=== PATIENT | female | born 1970 | race Caucasian/White ===

== ENCOUNTER 2020-08-27 15:49 | Observation (INO) ==
[2020-08-27 17:04] LABS: Basophils # 0.1 10*3/uL (0.0-0.2); Basophils % 0.8 % (0.0-0.8); Eosinophils # 1.3 10*3/uL (0.0-0.87); Eosinophils % 9.3 % (0.00-10.9); Hematocrit 44.3 VOL% (35.7-47.0); Immature Granulocytes % 0.4 %; Immature Granulocytes Absolute 0.06 #; Lymphocytes # 2.7 10*3/uL (1.4-4.0); Lymphocytes % 18.6 % (21.3-54.2); Mean Corpuscular HGB Conc 33.9 GM/DL (32-36); Mean Corpuscular Volume 101.4 FL (87-102); Mean Platelet Volume 9.3 FL (9.6-12.0); Monocytes % 7.4 % (1.7-12.7); Neutrophils % 63.5 % (38.7-73.9); Platelet Count 368 T/CUMM (130-400); Red Blood Count 4.37 MC/CUMM (3.8-5.5); Red Cell Distribution Width 13.2 % (9.3-17.3); White Blood Count 14.3 T/CUMM (4-12)
[2020-08-27 17:19] LABS: Albumin 3.5 G/DL (3.4-5.0); Bilirubin,Total 1.2 MG/DL (0.2-1.0); Calcium 9.5 MG/DL (8.5-10.1); Potassium 3.4 MMOL/L (3.5-5.1); Total Protein 7.7 G/DL (6.4-8.2)
[2020-08-27] MEDS ORDERED: ONDANSETRON 4 MG/2 ML VIAL IV PRN (18:52)
[2020-08-27] MEDS ORDERED: HYDROmorphone 2 MG/1 ML VIAL IV PRN (18:52)
[2020-08-27] MEDS ORDERED: ACETAMINOPHEN 325 MG TABLET PO PRN (18:52)
[2020-08-27] MEDS: SODIUM CHLORIDE 0.9% 1,000 ML IV SCH ×2 (19:32→22:20)
[2020-08-28] MEDS: SODIUM CHLORIDE 0.9% 1,000 ML IV SCH ×2 (03:09→06:18)
[2020-08-28] MEDS ORDERED: cefOXitin 2,000 MG in SYRINGE 1 EACH IV ONE (06:33)
[2020-08-28] MEDS ORDERED: INDOCYANINE GREEN 25 MG VIAL IV ONE (06:33)
[2020-08-28 08:04] LABS: Bacteria,Urine Occasional /HPF (Few); Bilirubin,Urine Negative (Negative); Blood, Urine Small mg/dL (Negative); Glucose,Urine (UA) Negative (Negative); Ketones,Urine Negative (Negative); Mucus,Urine Moderate /LPF (Occasional); Nitrite,Urine Negative (Negative); Protein,Urine Negative; RBC,Urine 1 /HPF (0-4); Squamous Epithelial Cell,Urine Few /HPF (0-10); Urine Appearance Slightly Hazy (Clear); Urine Color Yellow (Yellow); Urine Specific Gravity 1.016 (1.001-1.035); Urine Urobilinogen < 2.0 EU/DL (0.2-1.0); WBC,Urine <1 /HPF (0-6)
[2020-08-28] MEDS ORDERED: LIDOCAINE 1%/EPI INJ 20 ML VIAL ONE (09:12)
[2020-08-28] MEDS ORDERED: BUPIVACAINE MPF 0.25% 30 ML VIAL ONE (09:12)
[2020-08-28] MEDS ORDERED: LIDOCAINE 2% 5 ML VIAL ONE (09:48)
[2020-08-28] MEDS ORDERED: propofoL 200 MG/20 ML VIAL IV ONE (09:48)
[2020-08-28] MEDS ORDERED: SEVOFLURANE 1 UNIT/15 MINUTE INH ONE ×2 (09:48→11:29)
[2020-08-28] MEDS ORDERED: fentaNYL 100 MCG/2 ML VIAL ONE (09:48)
[2020-08-28] MEDS ORDERED: MIDAZOLAM 2 MG/2 ML VIAL ONE (09:48)
[2020-08-28] MEDS ORDERED: ROCURONIUM 50 MG/5 ML VIAL IV ONE ×2 (09:48→10:40)
[2020-08-28] MEDS ORDERED: LACTATED RINGERS 1,000 ML IV SCH (10:00)
[2020-08-28] MEDS ORDERED: ePHEDrine 50 MG/ML VIAL ONE (10:21)
[2020-08-28] MEDS ORDERED: ONDANSETRON 4 MG/2 ML VIAL ONE (10:33)
[2020-08-28] MEDS ORDERED: SUGAMMADEX 200 MG/2 ML VIAL IV ONE (10:56)
[2020-08-28] MEDS ORDERED: TISSUE ADHESIVE 1 EACH APPLICATOR TOP ONE (11:02)
[2020-08-28] MEDS ORDERED: HYDROmorphone 2 MG/1 ML VIAL IV PRN (11:26)
[2020-08-28] MEDS ORDERED: MEPERIDINE 25 MG/1 ML VIAL IV PRN (11:26)
[2020-08-28] MEDS ORDERED: diphenhydrAMINE 50 MG/1 ML VIAL IV PRN (11:26)
[2020-08-28] MEDS ORDERED: PROMETHAZINE INJ 25 MG in SODIUM CHLORIDE 0.9% 50 ML IV PRN (11:26)
[2020-08-28] MEDS ORDERED: ONDANSETRON 4 MG/2 ML VIAL IV PRN (11:26)
[2020-08-28] MEDS ORDERED: ALBUTEROL/IPRATROPIUM 3 ML NEB RESP TX ONE ×2 (11:27→11:30)
[2020-08-28 17:30] VITALS: BP 123/75
[2020-08-28] MEDS ORDERED: BUDESONIDE/FORMOTEROL 160-4.5 INHALER 6 GM INH SCH (21:00)
[2020-08-28] MEDS ORDERED: ESCITALOPRAM 10 MG TABLET PO SCH (21:00)
[2020-08-29] MEDS ORDERED: LEVOTHYROXINE 75 MCG TABLET PO SCH (07:00)
[2020-08-29] MEDS ORDERED: hydroCHLOROthiazide 25 MG TABLET PO SCH (09:00)
[2020-08-29] MEDS ORDERED: OLMESARTAN 20 MG TABLET PO SCH (09:00)
== END 2020-08-28 15:25 | disposition home or self-care (01) ==
LOC: N.ED 15:49 → N.EDINP 15:49 → N.2E 19:46
PROVIDERS: ADMIT Surgery; ATTEND Surgery